=== PATIENT | male | born 1945 | race African-American/Black ===

== ENCOUNTER 2019-07-25 17:26 | Inpatient (IN) | payer OTHER ==
[~2019-07-25] VITALS: Ht 177.8 cm; Wt 67.1 kg
--- NOTE | ~2019-07-25 | P ---
[facility] [place] [address] PROCEDURE REPORT Name: VKII SCHULTZ Room #: 444-P [facility] IN M.R.#: [id number] Admission: 07/25/19 Attend Phys: Bailey Cain MD Discharge: Date of : 47 Report #: [id number] THIS REPORT FOR: //name// CC: India Karynvalente Bailey Loredo MD DATE OF SERVICE: 08/02/2019 BRIEF HISTORY: The patient is a 76-year-old male who was admitted to [facility] and found to have ascites and underwent a large volume paracentesis of 12 liters. Etiology of his chronic liver disease is not entirely clear. CT reveals evidence of a cirrhotic liver. The patient is a poor historian and can provide no information with regards to his liver disease. Upper endoscopy is recommended to survey for esophageal varices. PREOPERATIVE DIAGNOSES: Cirrhosis and end-stage liver disease, on dialysis. POSTOPERATIVE DIAGNOSES: 1. Severe erosive esophagitis. 2. Diffuse gastritis. 3. Retained solids and liquids in the stomach, suggestive of gastroparesis. MEDICATIONS: Deep sedation with propofol per anesthesia. SPECIMEN: Biopsies of gastritis. ESTIMATED BLOOD LOSS: 3 mL. PROCEDURE: EGD with biopsy. FINDINGS: Prior to propofol sedation, procedure of EGD was discussed with the patient as well as potential risks and its complications. He indicates he understands and desires to proceed. DESCRIPTION OF PROCEDURE: The patient was in the supine position, his head and chest was raised about 30 degrees. Subsequently, the Olympus video endoscope was inserted in the cervical esophagus under direct vision without difficulty. Examination of this organ through its entire length revealed intact esophageal mucosa. However, he was noted to have multiple linear erosions in the mid and distal esophagus. These findings were consistent with erosive esophagitis. No strictures or masses were seen. Obvious Bell mucosa was not seen. In addition, esophageal varices were not seen. Scope was advanced in the stomach, was examined on end view as well as retroflexed views. The patient had a large volume of liquid and particulate matter in his stomach. We were able to suction away a significant amount of liquid, but a large amount of stool remained in the [facility] [address] [address] PROCEDURE REPORT Name: VIKI SCHULTZ Room #: 444-P ADM IN M.R.#: [id number] Admission: 07/25/19 Attend Phys: Bailey Cain MD Discharge: Date of : 47 Report #: [id number]. Because of particulate matter, the scope kept clogging and we were no longer able to suction the material through the scope. Due to the large amount of retained material in the stomach, limited views were obtained. There was erythema of the mucosa that could be visualized, but no other abnormalities were seen. However, it is noted this was a very limited exam. There was a fairly large pool in the antrum of the stomach. I could not suction this material away and subsequently could not identify the pylorus. Since a large amount of liquid remained in the stomach, it was felt best to terminate the procedure. The scope was withdrawn. The patient tolerated the procedure well. DISPOSITION: Procedure undertaken for evaluation of portal hypertension and esophageal varices. No varices were seen. However, he does have a significant esophagitis. This likely on the basis of his gastroparesis and retained material in the stomach. We will start him on a PPI. There was an incomplete examination of the stomach. We need to consider repeat endoscopy at a later date. As far as screening for esophageal varices, none were seen today. We will place him on a PPI and we will empirically start him on Reglan at least on a short-term basis. By: [id number] Jaylon Rojo MD /nithya
[2019-07-25 17:28] VITALS: BP 101/54
[2019-07-25] MEDS ORDERED: LASIX 40 MG TAB40 MG PO (17:47)
[2019-07-25] MEDS ORDERED: NORVASC10 MG PO (17:47)
[2019-07-25] MEDS ORDERED: TYLENOL325 MG PO (17:47)
[2019-07-25] MEDS ORDERED: HYDRALAZINE 2525 M1 PO (17:48)
[2019-07-25] MEDS ORDERED: ASA81BEC PO (17:48)
[2019-07-25] MEDS ORDERED: LIPITOR40 MG PO (17:48)
[2019-07-25] MEDS ORDERED: RENVELA800 MG PO ×2 (17:49→17:50)
[2019-07-25] MEDS ORDERED: DULCOLAX STOOL100 M1 PO (17:50)
[2019-07-25] MEDS ORDERED: CARVEDILOL25 MG PO (17:50)
[2019-07-25 18:12] LABS: ABSOLUTE NEUTROPHILS 6.7 thou/uL (1.4-8.2); BASOPHILS 0.7 % (0.0-2.0); EOSINOPHILS 0.7 % (0.0-3.0); HEMATOCRIT 35.2 % (42.0-52.0); HEMOGLOBIN 11.1 gm/dL (14.0-18.0); LYMPHOCYTES 11.5 % (24.0-44.0); MCH 26.6 pg (26.0-34.0); MCHC 31.5 g/dL (28.0-37.0); MCV 84.4 fL (80.0-100.0); MONOCYTES 6.6 % (1.0-8.0); PLATELET COUNT 248 thou/uL (150-400); POLYS 80.5 % (36.0-66.0); RBC 4.17 mil/uL (4.50-6.00); RDW 15.2 % (10.5-14.5); WBC 8.3 thou/uL (4.0-11.0)
[2019-07-25 18:20] LABS: CALCIUM 8.6 mg/dL (8.5-10.1); CREATININE 5.4 mg/dL (0.7-1.3)
[2019-07-25] MEDS ORDERED: MELATIN3 MG PO (18:22)
[2019-07-25 18:33] LABS: ALBUMIN 3.1 g/dL (3.4-5.0); DIRECT BILIRUBIN 0.2 mg/dL (<0.1-0.3); TOTAL BILIRUBIN 0.5 mg/dL (<0.1-1.0)
[2019-07-25 19:57] VITALS: BP 100/59
[2019-07-25 20:38] VITALS: BP 124/76
[2019-07-25] MEDS ORDERED: ALPHAGAN P5 ML EA. EYE (23:18)
[2019-07-25] MEDS ORDERED: DULCOLAX10 MG RECTAL (23:21)
[2019-07-25] MEDS ORDERED: COLACE100 MG PO (23:22)
[2019-07-25] MEDS ORDERED: LUMIGAN2.5 M1 EA. EYE (23:26)
[2019-07-25] MEDS ORDERED: MIDODRINE HCL 55 M1 PO (23:27)
[2019-07-26] VITALS: BP 118/70
[2019-07-26 04:50] VITALS: BP 128/86
--- NOTE | 2019-07-26 05:17 | NUR ---
RECEIVED REPORT FROM ER NURSE. PT ADMITTED AROUND 2017. ADMISSION HX AND ASSESSMENT COMPLETED. PT IS CONFUSED AND A POOR HISTORIAN. DENIED ANY PAIN. O2 SATS LOW ON RA. PLACED ON 3L NC. PT HAS BEEN SLEEPING THROUGHOUT THE NIGHT. RESP EVEN AND UNLABORED. PT MOVES SELF INDEPENDENTLY IN BED. PT HAD LARGE, FORMED BOWEL MOVEMENT UPON ADMISSION. PT'S BROTHER/DPOA CAME TO CHECK ON PT'S STATUS DURING THE NIGHT. VSS. ABDOMEN STILL VERY DISTENDED. FALL PRECAUTIONS IN PLACE. PROGRESSING SLOWLY TOWARD POC GOALS. WILL CONTINUE TO MONTIOR FURTHER.
[2019-07-26 06:22] LABS: HEMATOCRIT 33.4 % (42.0-52.0); HEMOGLOBIN 10.6 gm/dL (14.0-18.0); MCH 26.8 pg (26.0-34.0); MCHC 31.7 g/dL (28.0-37.0); MCV 84.5 fL (80.0-100.0); RBC 3.95 mil/uL (4.50-6.00); RDW 15.2 % (10.5-14.5); WBC 6.9 thou/uL (4.0-11.0)
[2019-07-26 06:44] LABS: ALBUMIN 2.8 g/dL (3.4-5.0); CALCIUM 8.2 mg/dL (8.5-10.1); POTASSIUM 3.3 mmol/L (3.5-5.1); TOTAL BILIRUBIN 0.5 mg/dL (<0.1-1.0); TOTAL PROTEIN 7.2 g/dL (6.4-8.2)
[2019-07-26 06:46] LABS: INR 1.1
[2019-07-26 06:47] LABS: CREATININE 6.5 mg/dL (0.7-1.3)
[2019-07-26 09:36] VITALS: BP 116/57
[2019-07-26 12:37] LABS: % SATURATION 19 % (20-39); IRON 32 ug/dL (65-175); TIBC 166 ug/dL (250-450)
[2019-07-26 13:11] LABS: SOURCE ABDOMINAL; TOTAL VOLUME 20 mL
[2019-07-26 13:12] LABS: CLARITY CLEAR; COLOR YELLOW
[2019-07-26 13:22] LABS: BF NUCLEATED CELLS 131; BF RBC 546
--- NOTE | 2019-07-26 13:54 | NUR ---
PT ADMITTED RELATED TO ABDOMINAL DISTENTION AND NEW DX OF ASCITES. CM REVIEWED CHART AND SPOKE WITH CARE TEAM. CM MET WITH PT AT BEDSIDE THIS DAY. PT IS ALERT TO SELF AND PLACE. PT CONFIRMEND THAT HE HAD BEEN AT [facility]. PT STATED HE HAD BEEN THERE FOR 3 WEEKS. PT INDICATED THAT HE WOULD WANT HIS SON WILLIAN A CONTACT BUT HE DIDN'T HAVE HIS NUMBER. CM TRIED PT'S SON WILLIAN NUMBER LISTED ON [facility] FACE SHEET AND PT'S BROTHER DASH WHO WE HAVE LISTED DPOA WITH NO PAPERWORK ON CHART AND NEITHER ANSWERED. PT INDICATED HE PLANS TO RETURN TO [facility]. CM CALLED JUAN IN ADMISSIONS AT [facility] SHE INDICATED THAT PT HAD ADMITTED TO THE FROM [facility] 5 MONTHS AGO AND THAT PT HD USED ALL HIS SKILLED DAYS AND IS NOW LTC MEDICAID PENDING. SHE INDICATED THAT PT'S BROTHER IS AN OVER THE ROAD QUALITATIVE RESEARCHER AND THAT HE IS IN THE PROCESS OF PERSUEING GUARDIANSHIP. PT DOES DIALYSIS AT [facility]. CLINICAL INFO SENT TO [facility]. CM TO FOLLOW INDICATED WITH DC PLANNING.
[2019-07-26 14:26] LABS: BF NEUTROPHILS 2
[2019-07-26 14:28] LABS: BF MACROPHAGE 64
[2019-07-26 19:22] VITALS: BP 133/71
[2019-07-27 03:49] VITALS: BP 91/50
--- NOTE | 2019-07-27 04:10 | NUR ---
ASSUMED CARE OF PT @1900 PT ASSESSED AT START OF SHIFT. A&0X3 TO PERSON, PLACE AND SITUATION. DINNER TRAY INFORNT AND THIS NURSE ENCOURAGED PT TO EAT PT ATE ABT 95% OF MEAL REQUIRES EXTRA TIME. DENIES PAIN. IV INTACT IN RT A/C AND ABX GIVEN. PARACENTESIS DONE EARLIER TODAY DRAINED ABT 12.5L DRESSING INPLACE. ON 3L OF O2. FISTULA IN LFT UPPER ARM PRESENT AND ASSESSED. GETS HEMODIALYSIS MWF. SCD'S IN PLACE AND PT REPOSITIONS SELF IN BED. FALL PREC INPLACE AND CALL LIGHT WITHIN REACH. HOURLY ROUNDING DONE AND WILL CONT WITH POC TILL EOS. SPOKE WITH BAILEY DOMINGUEZ OVER THE PHONE CALLED TO SEE HOW PT IS DOING INFORMED HER ABT PT WELL BEING.
--- NOTE | 2019-07-27 13:31 | NUR ---
Assess due to RD consult. Pt admit with abdominal ascites, liver cirrhosis and need for parancentesis. Also hx ESRD with dialysis. Ammonia level 53, started on lactulose. From care home, somewhat confused upon questioning but able to answer basic questions. Ate 95% breakfast and nearly all lunch. Presents low nutrition risk as appetite and intake is adequate.
--- NOTE | 2019-07-27 14:20 | NUR ---
[facility] RECEIVED CONFIRMATION AND LEFT MSG WITH JUAN IN ADM .
[2019-07-27 16:09] LABS: BODY FLUID ALBUMIN 3.2 g/dL (Not Estab.); BODY FLUID AMYLASE 54 U/L (()); BODY FLUID GLUCOSE 79 mg/dL (()); BODY FLUID LDH 138 IU/L (())
--- NOTE | 2019-07-27 17:21 | NUR ---
PT A@OX3. IV INTACT IN R AC. PT RECEIVED DIALYSIS TODAY 1 LITER REMOVED. O2@3L PER NC. ABD FIRM AND DISTENDED. DENIES SOB OR PAIN. WILL CONT POC.
[2019-07-27 17:25] VITALS: BP 96/58
[2019-07-27 19:18] VITALS: BP 120/63
[2019-07-27 21:10] LABS: IgG 1409 mg/dL (700-1600)
--- NOTE | 2019-07-28 03:49 | NUR ---
ASSUMED CARE OF PT @1900 PT ASSESSED AT START OF A&OX3 DENIES PAIN. IV INTACT IN RT A/C ABX INFUSING. HADX2 BM AT THIS SHIFT. HAD DIALYSIS EARLIER TODAY. ON 3L OF O2 WILL CONT WITH POC TILL EOS.
[2019-07-28 05:00] VITALS: BP 107/61
[2019-07-28 06:10] LABS: BASOPHILS 0.5 % (0.0-2.0); EOSINOPHILS 2.2 % (0.0-3.0); HEMATOCRIT 31.7 % (42.0-52.0); LYMPHOCYTES 14.1 % (24.0-44.0); MCH 26.8 pg (26.0-34.0); MCHC 31.7 g/dL (28.0-37.0); MCV 84.6 fL (80.0-100.0); MONOCYTES 8.3 % (1.0-8.0); PLATELET COUNT 207 thou/uL (150-400); POLYS 74.9 % (36.0-66.0); RBC 3.75 mil/uL (4.50-6.00); RDW 15.1 % (10.5-14.5); WBC 6.6 thou/uL (4.0-11.0)
[2019-07-28 06:35] LABS: CALCIUM 7.6 mg/dL (8.5-10.1); CREATININE 6.8 mg/dL (0.7-1.3); INR 1.1; PHOSPHORUS 3.1 mg/dL (2.5-4.9); POTASSIUM 3.8 mmol/L (3.5-5.1)
[2019-07-28 09:21] VITALS: BP 106/55
[2019-07-28 09:26] LABS: SOURCE ABDOMINAL
[2019-07-28 10:18] VITALS: BP 106/55
--- NOTE | 2019-07-28 13:07 | PATH ---
[facility] [address] [place] [address] PATHOLOGY RPT PROCEDURE Name: VIKI SCHULTZ Room #: 444-P ADM IN M.R.#: [id number] Admission: 07/25/19 Date of : 47 Discharge: Report #: [id number] Path Case #: [id number] Note [facility] Accession Number: [id number] TESTS RESULT FLAG UNITS REF RANGE LAB Clinician Provided Cytology Information No. of containers..01 Other (Miscellaneous) Source: 01 ABDOMINAL FLUID DIAGNOSIS: 02 ABDOMINAL FLUID NEGATIVE FOR MALIGNANT CELLS. MESOTHELIAL CELLS ARE PRESENT. THIS INTERPRETATION INCLUDES EVALUATION OF A CELL BLOCK. Pathologist ICD10: 02 R18.8 Signed out by: Veronica Edmonds MD, Pathologist NPI- [id number] Performed by: Katina Crews, Staff Development Educator ([facility]) Gross description: 01 6 ML, YELLOW, CLEAR /LCS 09/27/1840 0000 Local FLAG LEGEND: L-Low Normal,H-High Normal,LL-Alert Low,HH-Alert High <-Panic Low,>-Panic High,A-Abnormal,AA-Critical Abnormal Performed at: [address] [place] [address] Bubba Crenshaw MD, [address] [address] Veronica Edmonds MD, Specimen Comment: A courtesy copy of this report has been sent to [phone] Specimen Comment: Report sent to Specimen Comment: A duplicate report has been generated due to demographic updates. Performed at: [address], [place], [place] [id number] MD Bubba Crenshaw MD Phone: [phone]
[2019-07-28 13:11] LABS: CERULOPLASMIN 18.5 mg/dL (16.0-31.0)
[2019-07-28 17:14] VITALS: BP 110/60
[2019-07-28 18:06] LABS: HAV IgM AB (ANTI-HAV IgM) Negative (Negative); HEPATITIS B SURFACE AG Negative (Negative); HEPATITIS C VIRUS AB <0.1 (0.0-0.9)
[2019-07-28 21:15] VITALS: BP 90/55
--- NOTE | 2019-07-29 01:31 | NUR ---
ASSUMED CARE OF PATIENT AT 1900. UP IN CHAIR UNTIL READY FOR BED. UP WITH ASSIST X 2. PLANNED DIALYSIS IN AM. POSSIBLE DC. PROGRESSING TOWARDS POC GOALS.
[2019-07-29 04:55] VITALS: BP 120/67
[2019-07-29 08:00] VITALS: BP 105/51
--- NOTE | 2019-07-29 09:43 | 2DMMODE ---
[facility] [address] [place] [address] 2 D/M-MODE ECHOCARDIOGRAM Name: VIKI SCHULTZ Room #: 444-P ADM IN M.R.#: [id number] Admission: 07/25/19 Attend Phys: Bailey Cain, Discharge: Date of : 47 Report #: [id number] THIS REPORT FOR: //name// APPROVED REPORT Study performed: 07/29/2019 08:51:48 EXAM: Comprehensive 2D, Doppler, and color-flow Echocardiogram Patient Location: Bedside Room #: 444 Status: routine BSA: 1.87 HR: 62 bpm BP: 120/67 mmHg Rhythm: NSR Other Information Study Quality: Excellent Indications Ascites. Hx: ESRD, DM. 2D Dimensions RVDd: 36.28 mm IVSd: 13.00 (7-11mm) LVOT Diam: 21.09 (18-24mm) LVDd: 45.00 mm PWd: 13.00 (7-11mm) Ascending Ao: 35.84 (22-36mm) LVDs: 27.50 (25-40mm) Aortic Root: 34.13 mm Volumes Left Atrial Volume (Systole) Single Plane 4CH: 37.56 mL Single Plane 2CH: 39.62 mL LA ESV Index: 23.00 mL/m2 Aortic Valve AoV Peak Prashant.: 2.07 m/s AO Peak Gr.: 17.07 mmHg LVOT Max P.84 mmHg LVOT Max V: 1.49 m/s EVAN Vmax: 2.51 cm2 Mitral Valve E/A Ratio: 0.7 MV Decel. Time: 361.09 ms MV E Max Prashant.: 0.51 m/s [facility] [address] [place] [address] 2 D/M-MODE ECHOCARDIOGRAM Name: VIKI SCHULTZ Room #: 444-P ADM IN ..#: [id number] Admission: 07/25/19 Attend Phys: Bailey Cain, Discharge: Date of : 47 Report #: [id number] MV A Prashant.: 0.77 m/s MV PHT: 104.72 ms IVRT: 89.97 ms Pulmonary Valve PV Peak Prashant.: 0.83 m/s PV Peak Gr.: 2.73 mmHg Tricuspid Valve TR Peak Prashant.: 2.90 m/s RAP Estimate: 5.00 mmHg TR Peak Gr.: 34.00 mmHg PA Pressure: 39.00 mmHg Left Ventricle The left ventricle is normal size. There is normal LV segmental wall motion. Mild to moderate concentric left ventricular hypertrophy. Left ventricular systolic function is normal. LVEF is 60-65%. Mild diastolic dysfunction is present (impaired relaxation pattern). Right Ventricle The right ventricle is normal size. The right ventricular systolic function is normal. Atria The left atrium size is normal. The right atrium size is normal. Aortic Valve The aortic valve is normal in structure; moderately thickened. Mild aortic regurgitation. There is no aortic valvular stenosis. Mitral Valve The mitral valve is normal in structure. Mild mitral regurgitation. Tricuspid Valve The tricuspid valve is normal in structure. Mild tricuspid regurgitation. Estimated PAP is 40mmHg. Pulmonic Valve The pulmonary valve is normal in structure. Trace pulmonic regurgitation. Great Vessels The aortic root is normal in size. The ascending aorta is normal in size. IVC is normal in size and collapses >50% with [facility] [address] [place] [address] 2 D/M-MODE ECHOCARDIOGRAM Name: VIKI SCHULTZ Room #: 444-P ADM IN M.R.#: [id number] Admission: 07/25/19 Attend Phys: Bailey Cain, Discharge: Date of : 46 Report #: [id number] inspiration. Pericardium There is no pericardial effusion. Left pleural effusion noted. <Conclusion> The left ventricle is normal size. LVEF is 60-65%. The aortic valve is normal in structure; moderately thickened. Mild aortic regurgitation. The mitral valve is normal in structure. Mild mitral regurgitation. The pulmonary valve is normal in structure. Trace pulmonic regurgitation. There is no significant pericardial effusion. Left pleural effusion noted. <ELECTRONICALLY SIGNED> By: Everardo Phillips MD 07/29/19 0943 0943 2 Everardo Phillips MD /INF
[2019-07-29 12:11] LABS: ANA INTERPRETATION Negative (Negative)
[2019-07-29 14:07] LABS: SMOOTH MUSCLE ANTIBODY 33 Units (0-19)
[2019-07-29 15:08] LABS: MITOCHONDRIAL ANTIBODY <20.0 Units (0.0-20.0)
--- NOTE | 2019-07-29 15:48 | NUR ---
TOOK OVER CARE OF PT APPROX. 0700. A&Ox4 AT MORNING ASSESSMENT. DYALISIS TODAY. DRY WEIGHT OBTAINED WITH A 30LB WEIGHT LOSS SINCE ADMISSION. PT. IS CALM AND SLEEPY. NO INSULINE NEEDED TODAY DU TO GOOD GLUCOSE RESULTS. OXYGEN MAINTAINED AT 2.5L AND IS LEAVING NASAL CANULA ON.
[2019-07-29 21:00] VITALS: BP 108/59
[2019-07-30 04:00] VITALS: BP 99/52
--- NOTE | 2019-07-30 04:23 | NUR ---
PATIENT ALERT AND ORIENTED X3. PATIENT HAS BEEN NPO SINCE 2358 FOR EGD TODAY. NO C/O PAIN NOTED. DENIES PAIN. SLEPT IN CHAIR FOR MOST OF THE NIGHT. TRANSFERRED TO THE BED WITH TWO ASSIST. LARGE BM. 02NC IN PLACE WITH NO SOA NOTED. RESTING QUIETLY.
[2019-07-30 07:56] VITALS: BP 85/51
[2019-07-30 07:59] VITALS: BP 84/51
--- NOTE | 2019-07-30 19:32 | NUR ---
ASSUMED CARE OF PATIENT AT 0715, PATIENT ALERT WITH PERIODS OF CONFUSION. PATIENT IS NPO FOR EGD TODAY. B/P LOW 85/51 AND BLOOD SUGAR LOW 64, THIS RN NOTIFIED DR ARTHUR, RECEIVED ORDER FOR NS 500CC BOLUS AT 250CC/HR. RECEIVED ORDER FOR DEXTROSE 50% INJECTION. ORDERS IN BUT PHARMACY DODN'T SEND DEXTROSE UNTIL 1200, CALLED X 2 FOR THIS MEDICATION. SURGERY CALLED AND CANCELLED PROCEDURE, DUE TO LOW B/P AND LOW BLOOD SUGAR, ALSO NO LABS DONE THIS AM. PATIENT GIVEN PUDDING AND APPLE JUICE, REORDERED RENAL DIET. BLOOD SUGAR CHECKED AT NOON 84, ASSISTED PATIENT WITH LUNCH TRAY SET UP. RIGHT AC IV IN PLACE.
[2019-07-30 20:40] VITALS: BP 93/59
[2019-07-31 00:13] VITALS: BP 129/76
[2019-07-31 03:45] LABS: MCH 26.8 pg (26.0-34.0); MCHC 31.5 g/dL (28.0-37.0); MCV 85.1 fL (80.0-100.0); RBC 4.12 mil/uL (4.50-6.00); WBC 7.7 thou/uL (4.0-11.0)
[2019-07-31 04:03] LABS: ALBUMIN 2.1 g/dL (3.4-5.0); CALCIUM 7.9 mg/dL (8.5-10.1); PHOSPHORUS 3.5 mg/dL (2.5-4.9); POTASSIUM 4.4 mmol/L (3.5-5.1); TOTAL BILIRUBIN 0.4 mg/dL (<0.1-1.0); TOTAL PROTEIN 6.1 g/dL (6.4-8.2)
[2019-07-31 04:04] LABS: CREATININE 8.3 mg/dL (0.7-1.3)
--- NOTE | 2019-07-31 04:17 | NUR ---
PATIENT ALERT AND ORIENTED X2-[address] AT 2.5L. RESTLESS AT BEGINNING OF SHIFT WITH ATTEMPTS TO GET OOB. REORIENTED AND MONITORED. INCONTINENT OF BM X2 DURING THE NIGHT. BS MONITORED PER ORDER. ABDOMEN REMAINS DISTENDED AND SOFT. NO SOA NOTED. RESTING QUIETLY AT TIME OF NOTE. DENIES PAIN.
[2019-07-31 05:30] VITALS: BP 105/61
[2019-07-31 08:00] VITALS: BP 110/64
[2019-07-31 17:18] VITALS: BP 153/90
[2019-07-31 19:15] VITALS: BP 153/64
--- NOTE | 2019-08-01 03:41 | NUR ---
PATIENT ALERT AND ORIENTED X2. LESS RESTLESS DURING THE NIGHT. COOPERATIVE WITH CARE. PATIENT WILL HAVE DIALYSIS TODAY. BS MONITORED PER ORDER. NO STOOLS AT TIME OF NOTE. DRESSING TO DIALYSIS FISTULA DRY AND INTACT WITH BRUITT AND THRILL. RESTING QUIETLY. WILL MONITOR.
--- NOTE | 2019-08-01 04:42 | NUR ---
PATIENT GIVEN FULL BATH AND LOTIONED. CONTINUES TO DENY PAIN. RESTING QUIETLY WITH 02NC 2.5L. WILL MONITOR.
[2019-08-01 04:45] LABS: HEMATOCRIT 34.2 % (42.0-52.0); HEMOGLOBIN 10.9 gm/dL (14.0-18.0); MCH 26.7 pg (26.0-34.0); MCHC 31.7 g/dL (28.0-37.0); MCV 84.3 fL (80.0-100.0); RBC 4.06 mil/uL (4.50-6.00); RDW 15.5 % (10.5-14.5); WBC 8.8 thou/uL (4.0-11.0)
[2019-08-01 04:53] LABS: CALCIUM 8.2 mg/dL (8.5-10.1); MAGNESIUM 2.3 mg/dL (1.8-2.4); PHOSPHORUS 3.7 mg/dL (2.5-4.9); POTASSIUM 4.3 mmol/L (3.5-5.1)
[2019-08-01 04:57] LABS: CREATININE 9.6 mg/dL (0.7-1.3)
[2019-08-01 07:28] VITALS: BP 120/67
--- NOTE | 2019-08-01 16:31 | NUR ---
ORIENTED TO SELF. CALM, COOPERATIVE. SOME CONFUSED SPEECH. DIALYSIS TODAY, EGD TOMORROW. HE JUST WANTS HOT LIQUIDS AND HOT FOOD. REFUSES BG AND VS AT TIMES. WILL CONTINUE TO MONITOR CLOSELY.
--- NOTE | 2019-08-01 16:48 | NUR ---
CASE DISCUSSED WITH ATTENDING DR AND MEDCAL WORK-UP IN PROCESS. PLAN IS TO RETURN TO [facility].
[2019-08-01 19:21] VITALS: BP 120/68
--- NOTE | 2019-08-02 04:13 | NUR ---
ASSUMED CARE OF PT @1900 PT ASSESSED AT START OF SHIFT A&0 TO SELF AND SITUATION WITH CONFUSION. DENIES PAIN. PT NPO AT MIDNIGHT FOR EGD TOMORROW. HAD DIALYSIS EARLIER TODAY. PT HAD 2BM'S THIS SHIFT. TRIES TO GET OFF FROM BED FALL PREC IN PLACE AND FREQ ROUNDINGS DONE. FAMILY CALLED @MIDNIGHT TO ASK OF PT WELL BEING STATED THEY WILL BE BACK IN THE AM. WILL CONT WITH POC TILL EOS.
[2019-08-02 04:24] VITALS: BP 89/51
[2019-08-02 05:30] VITALS: BP 99/63
[2019-08-02 07:50] VITALS: BP 79/45
--- NOTE | 2019-08-02 13:51 | NUR ---
Followup: new dx cirrhosis, ascites and need for paracentesis with 12 L removed. Hx ESRD/dialysis. EGD today-gastroparesis, and varices noted. On pantoprazole and starting reglan. BG well controlled. Intake has been fair to good 65-80% most meals. Ammonia level improved to 19. Wt is down 10 lb, however difficult to assess to due to fluid status. Will offer ensure pudding for additional protein source. Physician has identified protein calorie malnutrition: RD will defer. Low nutrition risk at this time since still appears to be eating fairly well.
[2019-08-02 15:22] VITALS: BP 89/57; BP 98/66
[2019-08-02 16:00] VITALS: BP 86/50
--- NOTE | 2019-08-02 18:37 | NUR ---
RECEIVED PT'S CARE AROUND 0710; PT. ON BED; RESTING WITH EYES CLOSED; COVER HEAD WITH BLANKETS; ANSWER BACK TO NAME; NPO; DURING ASSESMENT NO C/O PAIN; VASOPRESSORS GIVEN; GONE TO PROCEDURE AROUND 1100; WHEN BACK TO FLOOR; NO C/O PAIN; BS ON THE 60s AROUND LUNCH TIME; JUICE GIVEN; 100% MEAL EATEN; BP BETWEEN 80-90s; NO C/O HEADACHE OR SOB; ABLE TO STAND UP TO CHAIR WITH PT; HAD BM X2 THROUGH THE DAY; PER GI; NPO AFTER MIDNIGHT DUE TO PROCEDURE ON 08/03/19; ASPIRIN ON HOLD; DIALYSIS NOTIFIED ABOUT PROCEDURE; ASSESSMENT CHARGED; FOLLOWING POC; MONITORING; WILL PASS ON REPORT;
[2019-08-03 00:01] VITALS: BP 112/62
--- NOTE | 2019-08-03 04:34 | NUR ---
Assumed pt care at 1900. Pt's alert to self and place only,able to make needs known at times but doesn't always call for assistance and attempts to get OOB by himself. Fall precautions in place and frequent monitoring done. Pt having small loose stools. Denies pain on assessment. Pt has been NPO since midnight for a possible liver biopsy. Resting quietly at this time no distress noted,will continue to monitor pt.
[2019-08-03 05:46] LABS: INR 1.1; PROTIME 11.4 Seconds (9.3-11.4)
[2019-08-03 09:00] VITALS: BP 95/51
[2019-08-03 15:40] VITALS: BP 147/78
--- NOTE | 2019-08-03 16:55 | NUR ---
pt is A&OX3, but pt is forgetful , pt 's vs are stable, pt is tolerative dialysis today, removed 1700ml fliud, pt denies pain and sob at this time.
--- NOTE | 2019-08-03 17:00 | NUR ---
pt will be NPO after MN FOR liver bx tomorrow in AM, PT had EGD done at 08/02/19, pt is tolerative DM diet at lunch time.
--- NOTE | 2019-08-03 17:06 | PATH ---
[facility] [address] [place] [address] PATHOLOGY RPT PROCEDURE Name: MIR SCHULTZ Room #: 444-P ADM IN M.R.#: [id number] Admission: 07/25/19 Date of : 47 Discharge: Report #: [id number] Path Case #: [id number] L[facility] Accession Number: [id number] . 01 Material submitted: . stomach - BIOPSY OF GASTRITIS TO R/O H. PYLORI . 01 Clinical history: . Chronic liver disease, rule out varices, esophagitis, gastritis, gastroparesis. . 02 Diagnosis: Gastric mucosa, gastritis rule out H. pylori, endoscopic biopsy: - Mild chronic gastritis. - Negative for intestinal metaplasia or atrophy. - Negative for Helicobacter pylori (properly controlled immunohistochemical stain performed). (IUV:dangelo; 08/03/2019) ZAINA 08/03/2019 1336 Local . 02 Electronically signed: . Veronica Edmonds MD, Pathologist NPI- [id number] . 01 Gross description: . Received in formalin labeled "Mir Schultz, BX to gastritis to rule out H. pylori" is a 0.5 x 0.3 x 0.1 cm aggregate of vazquez-brown mucosa fragments. The specimen is submitted in A1. ([facility]; 08/02/2019) [facility] 08/02/2019 1809 Local . 02 Pathologist provided ICD-10: K29.50 . 02 CPT . 548168, [id number] Specimen Comment: A courtesy copy of this report has been sent to [phone] Specimen Comment: [phone], Specimen Comment: Report sent to ,DR DIAZ / DR THOMAS Performed at: [address], [place] [id number] MD Bubba Crenshaw MD Phone: [phone] Performed at: [address] [id number] MD Veronica Edmonds MD Phone: [phone]
[2019-08-03 19:46] VITALS: BP 111/86
--- NOTE | 2019-08-04 04:59 | NUR ---
Assumed pt care at 1900. Pt is A/OX2,able to make needs known. Denies pain on assessment. Up with asssist of 1 RW/GB to BS,had a medium soft BM @HS,anuric. LUE Fistula with bruit and thrill;was dialyzed yesterday. Pt has been NPO from midnight for Liver Biopsy. Brother visited at HS. VSS.Fall precautions in place,will continue to monitor pt.
--- NOTE | 2019-08-04 07:41 | HC ---
[facility] [place] [place] [address] CONSULTATION Name: VIKI SCHULTZ Room #: 444-P ADM IN M.R.#: [id number] Admission: 07/25/19 Attend Phys: Bailey Cain MD Discharge: Date of : 47 Report #: [id number] THIS REPORT FOR: //name// CC: Ashwin Brewerfanny DATE OF SERVICE: 07/26/2019 REASON FOR CONSULTATION: End-stage renal disease. REASON FOR PRESENTATION: Brought from his dialysis unit because of increased abdominal distention. HISTORY OF PRESENT ILLNESS: This is a 74-year-old who is maintained on hemodialysis for unclear reasons to me. He does have some mental deficit and is not able to provide me with the details of his medical history. Apparently, he has been dialyzing utilizing a left-sided fistula. He is on dialysis every Thursday, Thursday and Thursday. He was brought from his dialysis unit because of significant abdominal distention and inability to remove enough fluid during the dialysis. The patient was found to have very significant abdominal ascites. I am not really sure if this had been a recurrent issue or not. This is the first time for the patient in our facility and it is not clear to me whether he knows about his end-stage liver disease issues or not. He reported to abdominal pain and constipation in the last few days. On presentation to the Emergency Room, the patient was found to have significant ascites with all criteria of liver cirrhosis. He was admitted for further evaluation and management. I am being consulted to manage his end-stage renal disease issues. PAST MEDICAL HISTORY: 1. End-stage renal disease. 2. Hypertension. 3. Debility. 4. Hyperparathyroidism. 5. Anemia of chronic disease. 6. Left AV fistula. 7. Liver cirrhosis, unsure about the etiology and the duration of the illness. MEDICATIONS: Currently, the patient is maintained on the followin. Midodrine. 2. Atorvastatin. 3. Hydralazine. 4. Carvedilol. 5. Furosemide. SOCIAL HISTORY: He resides in a nursing facility. [address] [place] [address] CONSULTATION Name: VIKI SCHULTZ Room #: 444-P ADM IN M.R.#: [id number] Admission: 07/25/19 Attend Phys: Bailey Cain MD Discharge: Date of : 47 Report #: [id number] FAMILY HISTORY: Unobtainable given the patient's current mentation. REVIEW OF SYSTEMS: As much as I could get from the patient with his current mental status. GENERAL: No fever or chills. CARDIOVASCULAR: No chest pain or palpitation. PULMONARY: No cough or hemoptysis. GASTROINTESTINAL: As per the history of present illness. GENITOURINARY: No frequency, no urgency. PHYSICAL EXAMINATION: VITAL SIGNS: Temperature 36.3, blood pressure 128/86. HEAD AND NECK: Emaciated with temporal muscle wasting. CHEST: Decreased air entry bilaterally. CARDIOVASCULAR: Systolic murmur present. ABDOMEN: Massive amount of ascites. LOWER EXTREMITIES: No edema. LABORATORY DATA: Reviewed. Sodium 141, potassium 3.3, BUN is 29, creatinine 6.5, chloride is 95, carbon dioxide is 38. Hemoglobin is 10.6. CT abdomen reviewed, significant amount of ascites. ASSESSMENT, IMPRESSION AND PLAN: 1. End-stage renal disease. 2. Ascites. 3. We will arrange for the patient to have his usual hemodialysis every Thursday, Thursday and Thursday. For unclear reasons to me, the patient is on blood pressure medication and midodrine, which is kind of an unusual combination. I will discontinue his blood pressure medication. 4. Keep on midodrine. 5. Ascites and liver cirrhosis workup per the primary team. <ELECTRONICALLY SIGNED> By: Pippa Moore MD 08/04/19 0741 0834 38 Pippa Moore MD /nt
[2019-08-04 07:47] VITALS: BP 114/49
--- NOTE | 2019-08-04 14:23 | NUR ---
Pt dcing back to ltc at [facility] today. They have arranged for a w/c van transport at 5pm. Care team updated. Will fax final dc orders to [facility] when ready. [facility] [place] arranged for his w/c van to dialysis in the am at [facility]. Flow sheets and physician progress notes faxed to [facility] for resumption of outpt tx tomorrow. Chart copy in progress. Nursing to call report.
[2019-08-04] MEDS ORDERED: PROTONIX 20 MG20 M1 PO (16:41)
[2019-08-04] MEDS ORDERED: HUMALOG100 UNIT/1 SUBQ (16:41)
[2019-08-04] MEDS ORDERED: LACTULOSE20 GM/30 M PO (16:41)
[2019-08-04] MEDS ORDERED: MIDODRINE HCL 55 M1 PO (16:41)
[2019-08-04] MEDS ORDERED: REGLAN 5 MG TAB5 MG PO (16:47)
--- NOTE | 2019-08-04 18:52 | NUR ---
ASSUMED CARE OF PATIENT AT 0715, PATIENT NPO THIS AM FOR LIVER BIOPSY. RECEIVED CALL FROM IR, PROCEDURE CANCELLLED DUE TO PATIENT HAVING ASPIRIN ON THURSDAY. THIS RN SPOKE TO UMESH/SHAYAN AND SHE STATES PATIENT WILL DISCHARGE BACK TO FACILITY DUE TO LIVER BIOPSY CANCELLED. PATIENT RESTARTED DIET LATE BREAKFAST TRAY. BLOOD SUGAR MONITORING ORDERED, NO INSULIN GIVEN DUE TO BLOOD SUGARS WNL. PATIENT HAD RIGHT UPPERARM IV IN PLACE, REMOVED PRIOR TO DISCHARGE. DISCHARGE ORDER IN BY DR ARTHUR. LEFT ARM FISTULA IN PLACE FOR DIALYSIS MWF, 1.7 OFF YESTERDAY. ABDOMEN IMPROVED. NO C/O PAIN THIS SHIFT. PATIENT IS A SETUP FOR MEALS. ALL PERSONAL BELONGINGS SENT WITH THE PATIENT, REPORT GIVEN TO TOMI/RN AT [facility].
== END 2019-08-04 20:11 | DRG 432 ==
LOC: ER 17:26 → 4S 19:30 → EROBS 19:30 → 4S 20:19
PROVIDERS: Internal Medicine; Internal Medicine Nephrology; Nurse Practitioner; Nurse Practitioner Acute Care; ADMIT Internal Medicine
PROC: 0W9G3ZZ Drainage of Peritoneal Cavity, Percutaneous Approach (ICD-10-PCS; principal; 2019-07-26)
PROC: 5A1D70Z Performance of Urinary Filtration, Intermittent, Less than 6 Hours Per Day (ICD-10-PCS; 2019-07-29)
PROC: 0DB68ZX Excision of Stomach, Via Natural or Artificial Opening Endoscopic, Diagnostic (ICD-10-PCS; 2019-08-02)
DX: K74.60 Unspecified cirrhosis of liver (principal); N18.6 End stage renal disease; E43 Unspecified severe protein-calorie malnutrition; G92 Toxic encephalopathy; K22.10 Ulcer of esophagus without bleeding; K76.6 Portal hypertension; R18.8 Other ascites; I12.0 Hypertensive chronic kidney disease with stage 5 chronic kidney disease or end stage renal disease; E87.6 Hypokalemia; E11.22 Type 2 diabetes mellitus with diabetic chronic kidney disease; K29.70 Gastritis, unspecified, without bleeding; E78.5 Hyperlipidemia, unspecified; D63.8 Anemia in other chronic diseases classified elsewhere; K72.90 Hepatic failure, unspecified without coma; I95.89 Other hypotension; F03.90 Unspecified dementia, unspecified severity, without behavioral disturbance, psychotic disturbance, mood disturbance, and anxiety; E11.649 Type 2 diabetes mellitus with hypoglycemia without coma; E11.43 Type 2 diabetes mellitus with diabetic autonomic (poly)neuropathy; K31.84 Gastroparesis; Z79.899 Other long term (current) drug therapy
CPT/HCPCS: 10100; 10195; 32100; 62110; 62900; 70005

== ENCOUNTER → 2019-08-15 | Outpatient (CLI) | payer OTHER ==
[~2019-08-15] VITALS: Ht 177.8 cm; Wt 70.9 kg
[~2019-08-15] MED LIST: ALPHAGAN P5 ML EA. EYE; ASA81BEC PO; CARVEDILOL25 MG PO; COLACE100 MG PO; DULCOLAX STOOL100 M1 PO; DULCOLAX10 MG RECTAL; HUMALOG100 UNIT/1 SUBQ; HYDRALAZINE 2525 M1 PO; LACTULOSE20 GM/30 M PO; LASIX 40 MG TAB40 MG PO; LIPITOR40 MG PO; LUMIGAN2.5 M1 EA. EYE; MELATIN3 MG PO; MIDODRINE HCL 55 M1 PO; NORVASC10 MG PO; PROTONIX 20 MG20 M1 PO; REGLAN 5 MG TAB5 MG PO; RENVELA800 MG PO; TYLENOL325 MG PO
[2019-08-15 10:05] VITALS: BP 120/67
[2019-08-15 10:36] LABS: INR 1.1; PROTIME 11.3 Seconds (9.3-11.4)
[2019-08-15 10:41] LABS: ALBUMIN 2.4 g/dL (3.4-5.0); DIRECT BILIRUBIN 0.2 mg/dL (<0.1-0.3); TOTAL BILIRUBIN 0.3 mg/dL (<0.1-1.0)
--- NOTE | 2019-08-15 12:08 | NUR ---
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 CONTINUES TO ASK ABOUT HIS LIVER BX AND EXPLANATION OF WHAT IT INVOLVES. EXPLAINED BRIEFLY, HAS BEEN TOLD SEVERAL TIMES BY OTHER NURSES AND DR. PATTEN. I INSTRUCTED DR PATTEN WILL AGAIN REMIND HIM OF PROCEDURES WHEN BACK IN IR. PT VERBALIZED UNDERSTANDING.
[2019-08-15 14:32] VITALS: BP 127/70
[2019-08-15 14:45] VITALS: BP 127/50
[2019-08-15 15:10] VITALS: BP 127/70
== END | disposition home or self-care (01) ==
LOC: SPEC 09:38
PROVIDERS: Radiology Vascular & Interventional Radiology
DX: K76.89 Other specified diseases of liver (principal); R18.8 Other ascites; K74.60 Unspecified cirrhosis of liver; I12.9 Hypertensive chronic kidney disease with stage 1 through stage 4 chronic kidney disease, or unspecified chronic kidney disease; E11.22 Type 2 diabetes mellitus with diabetic chronic kidney disease; N18.6 End stage renal disease; D63.1 Anemia in chronic kidney disease; E78.5 Hyperlipidemia, unspecified; Z98.890 Other specified postprocedural states; Z99.2 Dependence on renal dialysis; Z79.4 Long term (current) use of insulin; Z79.82 Long term (current) use of aspirin; Z79.899 Other long term (current) drug therapy

== ENCOUNTER 2020-02-29 13:57 | Inpatient (IN) | payer OTHER | END 2020-03-05 16:43 | DRG 480 | LOC: ER 13:57 → EROBS 16:22 → 4S 23:47 | PROVIDERS: ADMIT Surgery | PROC: 5A1D70Z Performance of Urinary Filtration, Intermittent, Less than 6 Hours Per Day (ICD-10-PCS; principal; 2020-02-29) | PROC: 0QS634Z Reposition Right Upper Femur with Internal Fixation Device, Percutaneous Approach (ICD-10-PCS; principal; 2020-02-29) | DX: S72.001A Fracture of unspecified part of neck of right femur, initial encounter for closed fracture (principal); N18.6 End stage renal disease; I12.0 Hypertensive chronic kidney disease with stage 5 chronic kidney disease or end stage renal disease; W06.XXXA Fall from bed, initial encounter; D63.8 Anemia in other chronic diseases classified elsewhere; E78.5 Hyperlipidemia, unspecified; E11.22 Type 2 diabetes mellitus with diabetic chronic kidney disease; E11.43 Type 2 diabetes mellitus with diabetic autonomic (poly)neuropathy; K31.84 Gastroparesis; K74.60 Unspecified cirrhosis of liver; I69.911 Memory deficit following unspecified cerebrovascular disease; K59.00 Constipation, unspecified; Z20.828 Contact with and (suspected) exposure to other viral communicable diseases; Z82.49 Family history of ischemic heart disease and other diseases of the circulatory system; Z79.82 Long term (current) use of aspirin; Z79.4 Long term (current) use of insulin; Y93.89 Activity, other specified; Y92.013 Bedroom of single-family (private) house as the place of occurrence of the external cause; Y99.8 Other external cause status; Z99.2 Dependence on renal dialysis; Z79.899 Other long term (current) drug therapy ==

== ENCOUNTER 2020-03-28 17:57 | Inpatient (IN) | payer OTHER ==
[~2020-03-28] VITALS: Ht 175.3 cm; Wt 69.1 kg
[~2020-03-28 17:57] MED LIST changes: +ALPHAGAN P5 ML OPHTHALMIC; +COSOPT OCUMETER10 M1 OPHTHALMIC; +GENTEAL TEARS 015 M1 OPHTHALMIC; +HYDROCODON-ACE1 EAC7 PO; +MIRALAX17 GM PO; +PROTONIX 20 MG20 MG PO
[2020-03-28 17:58] VITALS: BP 138/66
[2020-03-28 18:40] LABS: ANION GAP 5 mmol/L (7-16); BUN 23 mg/dL (7-18); CALCIUM 8.3 mg/dL (8.5-10.1); CHLORIDE 97 mmol/L (98-107); CO2 39 mmol/L (21-32); CREATININE 6.8 mg/dL (0.7-1.3); GLUCOSE 125 mg/dL (74-106); POTASSIUM 3.8 mmol/L (3.5-5.1); SODIUM 141 mmol/L (136-145)
[2020-03-28 18:50] LABS: ALBUMIN 3.6 g/dL (3.4-5.0); SGOT 30 U/L (15-37); SGPT 22 U/L (30-65); TOTAL BILIRUBIN 0.4 mg/dL (0.2-1.0); TOTAL PROTEIN 8.4 g/dL (6.4-8.2); TROPONIN-I <0.06 ng/mL (<0.06)
[2020-03-28 19:20] LABS: HEMATOCRIT 30.8 % (42.0-52.0); MCH 28.8 pg (26.0-34.0); MCHC 32.4 g/dL (28.0-37.0); MCV 88.7 fL (80.0-100.0); PLATELET COUNT 193 thou/uL (150-400); RBC 3.47 mil/uL (4.50-6.00); RDW 16.6 % (10.5-14.5); WBC 5.5 thou/uL (4.0-11.0)
[2020-03-28 20:19] LABS: ABSOLUTE NEUTROPHILS 4.3 thou/uL (1.4-8.2); PLATELET ESTIMATE NORMAL
[2020-03-28 21:31] VITALS: BP 144/70
[2020-03-28 21:40] LABS: URINE BILIRUBIN NEGATIVE (Negative); URINE BLOOD 2+ (Negative); URINE CLARITY CLEAR; URINE COLOR YELLOW; URINE GLUCOSE-RANDOM* NEGATIVE (Negative); URINE KETONES NEGATIVE (Negative); URINE LEUKOCYTES-REFLEX NEGATIVE (Negative); URINE NITRITE-REFLEX NEGATIVE (Negative); URINE PROTEIN (DIPSTICK) 2+ (Negative); URINE SPECIFIC GRAVITY 1.015 (1.005-1.035); URINE UROBILINOGEN 0.2 E.U./dl (0.2-1.0)
[2020-03-28 21:50] LABS: AMP/METHAMP Negative (Negative); BARBITURATES Negative (Negative); BENZODIAZEPINES Negative (Negative); COCAINE Negative (Negative); METHADONE Negative (Negative); OPIATES Negative (Negative); PCP Negative (Negative)
[2020-03-28 21:55] LABS: BACTERIA-REFLEX 1-9 Few /HPF (None Seen); CRYSTALS None Seen /LPF (None Seen); HYALINE CASTS 0-3 Few /LPF (None Seen); MUCUS 0-3 Light strn/LPF (None Seen); SQUAMOUS 4-10 Moderate /LPF (0-3); URINE RBC 3-10 Few /HPF (0-2); URINE WBC-REFLEX 0-5 Rare /HPF (0-5)
[2020-03-28] MEDS ORDERED: COLACE100 MG PO (22:01)
[2020-03-28] MEDS ORDERED: ROSUVASTATIN CA20 MG PO (22:03)
[2020-03-28] MEDS ORDERED: EPIPEN0.3 MG/0.1 IM (22:05)
[2020-03-28] MEDS ORDERED: NITROSTAT0.4 M1 PO (22:06)
[2020-03-28 22:59] VITALS: BP 143/71
[2020-03-29 01:47] LABS: HEMATOCRIT 30.8 % (42.0-52.0); HEMOGLOBIN 9.9 gm/dL (14.0-18.0); MCH 28.4 pg (26.0-34.0); MCHC 32.2 g/dL (28.0-37.0); MCV 88.4 fL (80.0-100.0); RBC 3.49 mil/uL (4.50-6.00); RDW 16.7 % (10.5-14.5); WBC 4.4 thou/uL (4.0-11.0)
[2020-03-29 01:50] LABS: CALCIUM 7.5 mg/dL (8.5-10.1); CREATININE 7.5 mg/dL (0.7-1.3); POTASSIUM 3.9 mmol/L (3.5-5.1)
[2020-03-29 05:07] VITALS: BP 143/119
[2020-03-29 08:12] VITALS: BP 137/78
--- NOTE | 2020-03-29 08:57 | EKG ---
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
[2020-03-29 17:20] VITALS: BP 167/90
[2020-03-29 20:24] VITALS: BP 183/99
[2020-03-30 05:56] VITALS: BP 163/83
[2020-03-30 19:36] VITALS: BP 150/77
[2020-03-31 05:30] VITALS: BP 143/70
[2020-03-31 07:53] VITALS: BP 131/75
[2020-03-31 17:03] VITALS: BP 161/91
[2020-04-01 04:03] VITALS: BP 161/88
[2020-04-01 07:46] VITALS: BP 140/89
[2020-04-01 19:29] VITALS: BP 173/95
[2020-04-02 03:59] VITALS: BP 146/82
[2020-04-02 09:10] VITALS: BP 161/85
[2020-04-02 20:15] VITALS: BP 132/72
[2020-04-03 07:22] VITALS: BP 127/81
[2020-04-04 04:59] VITALS: BP 156/93
[2020-04-04 08:23] VITALS: BP 146/64
[2020-04-04 19:15] VITALS: BP 112/64
[2020-04-05 19:07] VITALS: BP 104/69
--- NOTE | 2020-04-06 07:27 | HC ---
[facility] [place] [address] CONSULTATION Name: VIKI SCHULTZ Room #: 359-P ADM IN M.R.#: [id number] Admission: 03/28/20 Attend Phys: Constantino Nazario MD Discharge: Date of : 47 Report #: [id number] THIS REPORT FOR: cc: KINA - Fernanda family physician/PCP KINA - Fernanda family physician/PCP Pippa Moore MD ~ CC: [facility] physician/PCP Constantino Nazario REASON FOR CONSULTATION: End-stage renal disease. REASON FOR PRESENTATION: Mental status changes. HISTORY OF PRESENT ILLNESS: Obtained from the medical chart. A 75-year-old who is well known to me from previous admissions. Apparently, the patient was sent from his nursing facility because of acute mental status changes. He is in end-stage renal disease, maintained on hemodialysis every Thursday, Thursday and Thursday. He was hypoxemic on his presentation with an O2 sat of 85 on room air. Details are not available and scarce due to the patient's acute mental status changes. However, I have known this patient for a long time since he is a repeat admission in our facility. PAST MEDICAL HISTORY: 1. Hypertension. 2. End-stage renal disease, maintained on hemodialysis. 3. Anemia. 4. Hyperlipidemia. 5. Hyperparathyroidism. MEDICATIONS: 1. Lipitor. 2. Aspirin. 3. Pantoprazole. 4. Hydrocodone. 5. Midodrine. REVIEW OF SYSTEMS: Unobtainable given the patient's current mental status. SOCIAL HISTORY: Resides in a nursing facility. Other parts are not available. FAMILY HISTORY: Unobtainable given the patient's mental status. ALLERGIES: Listed allergies none. PHYSICAL EXAMINATION: GENERAL: Somewhat confused. VITAL SIGNS: Blood pressure is 163/83, temperature is 37.2, pulse rate is 63, [facility] [address] [place] [address] CONSULTATION Name: VIKI SCHULTZ Room #: 359-P ADM IN M.R.#: [id number] Admission: 03/28/20 Attend Phys: Constantino Nazario MD Discharge: Date of : 47 Report #: [id number] respiratory rate is 18. HEAD AND NECK: No jugular venous distention. CHEST: No crackles. CARDIOVASCULAR: No rub. ABDOMEN: Soft. EXTREMITIES: Lower extremities, no edema. LABORATORY VALUES: Revealed a white blood cell count of 4.4. Sodium was 141, potassium was 3.9, BUN was 28, creatinine was 7.5. COVID-19 result came back to be positive. ASSESSMENT AND IMPRESSION: 1. End-stage renal disease. 2. COVID-19 positive x 1. 3. Mental status changes. PLAN: 1. Discontinue midodrine given his blood pressure reading. 2. Dialysis with aggressive ultrafiltration. 3. ID is currently managing his COVID-19 results. 4. Resume his outpatient medications related to his dialysis. <ELECTRONICALLY SIGNED> By: Pippa Moore MD 04/06/20 0727 [id number] Pippa Moore, /nt
[2020-04-06 09:24] VITALS: BP 150/97
[2020-04-06 15:03] VITALS: BP 117/74
[2020-04-06 19:17] VITALS: BP 113/63
[2020-04-07 05:20] VITALS: BP 112/64
[2020-04-07 08:48] VITALS: BP 117/73
[2020-04-07 17:03] VITALS: BP 136/71
[2020-04-07 20:06] VITALS: BP 110/65
[2020-04-08 04:40] VITALS: BP 107/61
[2020-04-08 08:32] VITALS: BP 121/69
[2020-04-08 17:22] VITALS: BP 143/78
[2020-04-08 19:40] VITALS: BP 178/88
[2020-04-09 04:25] VITALS: BP 144/84
[2020-04-09 08:30] VITALS: BP 154/85
[2020-04-09 09:00] VITALS: BP 132/54
[2020-04-09 13:11] VITALS: BP 140/81
[2020-04-09 15:04] LABS: HEMATOCRIT 29.8 % (42.0-52.0); HEMOGLOBIN 9.6 gm/dL (14.0-18.0); MCH 27.9 pg (26.0-34.0); MCHC 32.4 g/dL (28.0-37.0); MCV 86.2 fL (80.0-100.0); RBC 3.45 mil/uL (4.50-6.00); RDW 16.1 % (10.5-14.5); WBC 6.2 thou/uL (4.0-11.0)
[2020-04-09 15:11] LABS: CALCIUM 7.6 mg/dL (8.5-10.1); CREATININE 13.2 mg/dL (0.7-1.3); POTASSIUM 5.5 mmol/L (3.5-5.1)
[2020-04-09 19:52] VITALS: BP 132/54
[2020-04-09 21:26] VITALS: BP 136/78
[2020-04-10 03:25] VITALS: BP 142/79
[2020-04-10 09:02] VITALS: BP 126/67
[2020-04-10 16:19] VITALS: BP 116/73
[2020-04-10 20:00] VITALS: BP 122/75
[2020-04-11 08:30] VITALS: BP 111/63
[2020-04-11 20:45] VITALS: BP 88/53
[2020-04-12 03:42] VITALS: BP 108/61
== END 2020-04-12 16:24 | DRG 871 ==
LOC: ER 17:57 → EROBS 19:47 → 3W 19:47
PROVIDERS: Hospitalist; Nurse Practitioner Family; Student in an Organized Health Care Education/Training Program; ADMIT Internal Medicine; ATTEND Internal Medicine
PROC: 5A1D70Z Performance of Urinary Filtration, Intermittent, Less than 6 Hours Per Day (ICD-10-PCS; principal; 2020-03-29)
DX: A41.89 Other specified sepsis (principal); U07.1 COVID-19; G92 Toxic encephalopathy; N18.6 End stage renal disease; J12.89 Other viral pneumonia; J96.21 Acute and chronic respiratory failure with hypoxia; I50.33 Acute on chronic diastolic (congestive) heart failure; I13.2 Hypertensive heart and chronic kidney disease with heart failure and with stage 5 chronic kidney disease, or end stage renal disease; R65.20 Severe sepsis without septic shock; E78.5 Hyperlipidemia, unspecified; E11.22 Type 2 diabetes mellitus with diabetic chronic kidney disease; D63.1 Anemia in chronic kidney disease; K74.60 Unspecified cirrhosis of liver; Z99.2 Dependence on renal dialysis; Z79.82 Long term (current) use of aspirin; Z79.899 Other long term (current) drug therapy
CPT/HCPCS: 10080; 10879; 32100

== ENCOUNTER 2020-04-26 17:57 | Emergency (ER) | payer OTHER ==
[~2020-04-26] VITALS: Ht 170.2 cm; Wt 81.2 kg
[~2020-04-26 17:57] MED LIST changes: +EPIPEN0.3 MG/0.1 IM; +NITROSTAT0.4 M1 PO; +ROSUVASTATIN CA20 MG PO
[2020-04-26 20:42] VITALS: BP 151/86
== END 2020-04-26 23:32 | disposition home or self-care (01) ==
LOC: ER 17:57
DX: R41.82 Altered mental status, unspecified (principal); Z53.21 Procedure and treatment not carried out due to patient leaving prior to being seen by health care provider

== ENCOUNTER 2020-07-10 14:19 | Inpatient (IN) | payer OTHER ==
[~2020-07-10] VITALS: Ht 177.8 cm; Wt 73.7 kg
[2020-07-10 14:20] VITALS: BP 112/64
[2020-07-10 14:54] LABS: HEMATOCRIT 40.2 % (42.0-52.0); HEMOGLOBIN 12.7 gm/dL (14.0-18.0); MCH 27.1 pg (26.0-34.0); MCHC 31.6 g/dL (28.0-37.0); MCV 85.8 fL (80.0-100.0); PLATELET COUNT 123 thou/uL (150-400); RBC 4.68 mil/uL (4.50-6.00); RDW 16.7 % (10.5-14.5)
[2020-07-10 15:11] LABS: CALCIUM 8.4 mg/dL (8.5-10.1); CREATININE 8.1 mg/dL (0.7-1.3); POTASSIUM 3.9 mmol/L (3.5-5.1)
[2020-07-10 15:21] LABS: MAGNESIUM 2.3 mg/dL (1.8-2.4)
[2020-07-10 15:22] LABS: TROPONIN-I 5.36 ng/mL (<0.06)
[2020-07-10 15:37] LABS: ABSOLUTE NEUTROPHILS 3.6 thou/uL (1.4-8.2); ANISOCYTOSIS 1+
[2020-07-10 15:39] LABS: MACROCYTES FEW; POLYCHROMASIA OCCASIONAL
--- NOTE | 2020-07-10 15:54 | EKG ---
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 : 1945 Requested By: Derrick Zapata Order Number: [id number] MD: Alcides Guerrier Measurements Intervals [place] Rate: 82 P: 65 [place]: 172 QRS: 52 QRSD: 93 T: 7 QT: 411 QTc: 480 Interpretive Statements Sinus rhythm Low voltage, extremity leads Minimal ST depression, lateral leads Borderline prolonged QT interval Compared to ECG 03/28/2020 19:16:45 Low QRS voltage now present ST (T wave) deviation still present Electronically Signed On 07-10-2020 15:54:25 CDT by Alcides Guerrier [email or web address] <ELECTRONICALLY SIGNED> By: Alcides Guerrier MD, FACC 07/10/20 1554 [id number] [id number] Alcides Guerrier MD, [facility] /EPI
[2020-07-10 18:03] LABS: URINE BILIRUBIN NEGATIVE (Negative); URINE BLOOD TRACE (Negative); URINE CLARITY CLEAR; URINE COLOR YELLOW; URINE GLUCOSE-RANDOM* NEGATIVE (Negative); URINE KETONES NEGATIVE (Negative); URINE LEUKOCYTES-REFLEX NEGATIVE (Negative); URINE NITRITE-REFLEX NEGATIVE (Negative); URINE PROTEIN (DIPSTICK) 2+ (Negative); URINE UROBILINOGEN 0.2 E.U./dl (0.2-1.0)
[2020-07-10 18:11] LABS: HYALINE CASTS 0-3 Few /LPF (None Seen)
[2020-07-10 18:12] LABS: MUCUS 0-3 Light strn/LPF (None Seen)
[2020-07-10 18:13] LABS: SQUAMOUS 0-3 Few /LPF (0-3); URINE WBC-REFLEX 0-5 Rare /HPF (0-5)
[2020-07-10 18:14] LABS: BACTERIA-REFLEX 1-9 Few /HPF (None Seen); CRYSTALS None Seen /LPF (None Seen); URINE RBC 0-2 Rare /HPF (0-2)
[2020-07-11 03:15] VITALS: BP 97/58
[2020-07-11 03:30] VITALS: BP 111/71
[2020-07-11] MEDS ORDERED: ZINC SULFATE220 MG PO (04:24)
[2020-07-11] MEDS ORDERED: VITAMIN C500 M2 PO (04:24)
--- NOTE | 2020-07-11 04:50 | NUR ---
ASSUMED CARE OF PT FROM ED AT 0315HRS. PT IS ALERT BUT ONLY ORIENTED TO SELF AND PLACE. FALL PRECAUTION IN PLACE. PT WAS ORINTED O THE UNIT AND HIS ROOM. PT DENIES PAIN, NAUSEA OR SOA. PT RUNNING NSR ON TELE. PT HAS A DAILYSIS FISTULA ON HIS LEFT ARM AND FOLLOWS A M/W/F SCHEDULE. PT IS FOM LCCG AND INITIAL COVID COMPLETED IN ER AND IS NEGATIVE. PT WAS ABLE TO GET COMFORTABLE AND SLEEP PART OF THE SHIFT. VSS AND NO S/S OF ACUTE DISTRESS. WILL CONTINUE TO MONITOR.
[2020-07-11 06:15] LABS: HEMATOCRIT 39.8 % (42.0-52.0); HEMOGLOBIN 12.5 gm/dL (14.0-18.0); MCHC 31.4 g/dL (28.0-37.0); RBC 4.63 mil/uL (4.50-6.00); RDW 16.4 % (10.5-14.5); WBC 4.3 thou/uL (4.0-11.0)
[2020-07-11 06:49] LABS: CALCIUM 8.8 mg/dL (8.5-10.1); CREATININE 10.9 mg/dL (0.7-1.3); MAGNESIUM 2.5 mg/dL (1.8-2.4)
[2020-07-11 06:51] LABS: TROPONIN-I 5.78 ng/mL (<0.06)
--- NOTE | 2020-07-11 07:35 | EKG ---
[facility] [place] [address] ELECTROCARDIOGRAM REPORT Name: VIKI SCHULTZ Room #: 353-P ADM IN M.R.#: [id number] Admission: 07/10/20 Attend Phys: Constantino Nazario MD Discharge: Date of : 47 Report #: [id number] THIS REPORT FOR: cc: India Barth,India Salcedo,Alcides VIDAL [facility] ~ THIS REPORT FOR: //name// 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 : 1945 Requested By: Constantino Nazario Order Number: [id number] MD: Alcides Guerrier Measurements Intervals [place] Rate: 77 P: 42 MN: 178 QRS: 40 QRSD: 96 T: 35 QT: 413 QTc: 468 Interpretive Statements Sinus rhythm Atrial premature complex Borderline low voltage, extremity leads Minimal ST depression, lateral leads Compared to ECG 07/10/2020 15:08:59 Atrial premature complex(es) now present ST (T wave) deviation still present Electronically Signed On 07-11-2020 7:35:21 CDT by Alcides Guerrier [email or web address] <ELECTRONICALLY SIGNED> By: Alcides Guerrier MD, FACC 07/11/20 0735 43 43 Alcides Guerrier MD, FACC /EPI
[2020-07-11 13:09] LABS: CHOLESTEROL 134 mg/dL (<200); HDL CHOLESTEROL 20 mg/dL (>40); LDL CHOLESTEROL 74 mg/dL (<100); TC:HDL 6.7 Ratio (Not establshd); TRIGLYCERIDE 203 mg/dL (<150); VLDL 41 mg/dL (<40)
--- NOTE | 2020-07-11 15:51 | NUR ---
INITIAL ASSESSMENT: BONNIE reviewed chart and spoke with nursing and attending physician. Pt was admitted from [facility] due to elevated troponin/weakness. Pt placed in Enhanced Isolation due to COVID-19. Pt is afebrile and not requiring O2. Pt's first test was negative. Repeat COVID test ordered due to hx of COVID-19. Cardiology consulted. Pt is afebrile and not requiring O2. Pt goes to dialysis at [facility]. BONNIE placed call to pt's room. Line is busy. BONNIE left voice message for pt's brother, Constantino. service planner to fax updates to [facility] for review. [facility] Kathe. BONNIE spoke with staff at [facility], who states pt's normal dialysis schedule is second shift. Will need discharge order/summary faxed to the [facility] clinic when pt is discharged. BONNIE is following to assist as needed with discharge planning.
--- NOTE | 2020-07-11 17:44 | NUR ---
PATIENT KEEP INSISTING HE HAS TO GO BACK TO [facility] TODAY. HE IS ALERT ORIENTED X3. STATES HE DOES NOT WANT TO STAY IN THE HOSPITAL TONIGHT. RESPIRATIONS ARE EVEN UNLABORED.DIFFICULT TO REDIRECT PATIENT HE IS BENT ON GOING HOME TODAY. WILL CONT TO REDIRECT.
[2020-07-11 19:32] VITALS: BP 108/66
--- NOTE | 2020-07-12 05:01 | NUR ---
SLEPT MOST OF SHIFT. TURNS SELF IN BED WITHOUT ASSIST. WORKING ON GOALS AND PLAN OF CARE FOR NOC. DENIES COMPLAINTS OF PAIN OR SHORTNESS OF AIR. SECOND COVID NEGATIVE. PROGRESSING TOWARDS GOALS FOR DISCHARGE BACK TO [facility]. CONTINUE TO ASSES CLOSELY.
[2020-07-12 05:30] VITALS: BP 107/67
[2020-07-12 07:40] VITALS: BP 132/74
[2020-07-12 11:18] VITALS: BP 101/62
--- NOTE | 2020-07-12 12:40 | 2DMMODE ---
[facility] [place] [address] 2 D/M-MODE ECHOCARDIOGRAM Name: VIKI SCHULTZ Room #: 353-P ADM IN M.R.#: [id number] Admission: 07/10/20 Attend Phys: Constantino Nazario MD Discharge: Date of : 47 Report #: [id number] THIS REPORT FOR: cc: India Barth,Alcides Galindo MD [facility] ~ APPROVED REPORT Study performed: 07/12/2020 11:52:16 EXAM: Comprehensive 2D, Doppler, and color-flow Echocardiogram Patient Location: Bedside Room #: 353 Status: routine BSA: 1.91 HR: 74 bpm BP: 111/71 mmHg Rhythm: NSR Other Information Study Quality: Good/exam done with patient in recliner. Indications Elevated troponin. Hx: COVID-19 (March), ESRD, DM, HTN, HLP. 2D Dimensions RVDd: 36.24 mm IVSd: 12.00 (7-11mm) LVOT Diam: 21.11 (18-24mm) LVDd: 47.26 mm PWd: 11.43 (7-11mm) Ascending Ao: 34.52 (22-36mm) LVDs: 35.49 (25-40mm) Aortic Root: 36.17 mm Volumes Left Atrial Volume (Systole) Single Plane 4CH: 38.38 mL Single Plane 2CH: 61.38 mL LA ESV Index: 28.00 mL/m2 Aortic Valve AoV Peak Prashant.: 1.86 m/s AO Peak Gr.: 13.80 mmHg LVOT Max P.03 mmHg AO Mean Gr.: 7.86 mmHg [facility] [address] [place] [address] 2 D/M-MODE ECHOCARDIOGRAM Name: VIKI SCHULTZ Room #: 353-P ADM IN .R.#: [id number] Admission: 07/10/20 Attend Phys: Constantino Nazario MD Discharge: Date of : 47 Report #: [id number] AO V2 Mean: 1.35 m/s LVOT Max V: 1.23 m/s AO V2 VTI: 34.14 cm EVAN Vmax: 2.31 cm2 AI Vmax: 3.67 m/s AI Mitchell: 2.23 m/s2 AI PHT: 478.18 ms Mitral Valve E/A Ratio: 0.7 MV Decel. Time: 259.83 ms MV E Max Prashant.: 0.61 m/s MV A Prashant.: 0.91 m/s MV PHT: 75.35 ms IVRT: 79.58 ms Pulmonary Valve PV Peak Prashant.: 0.84 m/s PV Peak Gr.: 2.79 mmHg Pulmonary Vein P Vein S: 0.42 m/s P Vein D: 0.32 m/s P Vein S/D Ratio: 1.31 Tricuspid Valve TR Peak Prashant.: 2.15 m/s RAP Estimate: 5.00 mmHg TR Peak Gr.: 18.43 mmHg PA Pressure: 23.00 mmHg Left Ventricle The left ventricle is normal size. Possible gegional wall motion abnormalities are noted. Mild basal septal hypertrophy is present. Left ventricular systolic function is low normal. LVEF is 50%. Mild diastolic dysfunction is present (impaired relaxation pattern). Right Ventricle The right ventricle is normal size. The right ventricular systolic function is normal. Atria The left atrium size is normal. The right atrium size is normal. Aortic Valve Aortic valve is calcified. Mild aortic regurgitation. There is no aortic valvular stenosis. [facility] [address] [place] [address] 2 D/M-MODE ECHOCARDIOGRAM Name: VIKI SCHULTZ Room #: 353-P ADM IN M.R.#: [id number] Admission: 07/10/20 Attend Phys: Constantino Nazario MD Discharge: Date of : 47 Report #: [id number] Mitral Valve The mitral valve is normal in structure. Mild mitral regurgitation. Tricuspid Valve The tricuspid valve is normal in structure. Trace tricuspid regurgitation. Estimated PAP is 20-25mmHg. Pulmonic Valve The pulmonary valve is normal in structure. Trace pulmonic regurgitation. Great Vessels The aortic root is normal in size. The ascending aorta is normal in size. IVC is normal in size and collapses >50% with inspiration. Pericardium There is no pericardial effusion. <Conclusion> Normal left ventricle size, mild septal hypertrophy Preserved ejection fraction of 50%, no obvious segmental wall motion normality Mild mitral as well as aortic valve insufficiency Trace of tricuspid valve insufficiency, PA pressure systolic estimated at 25 mmHg No pericardial effusion <ELECTRONICALLY SIGNED> By: Alcides Guerrier MD, FACC 07/12/20 1240 Alcides Guerrier MD, FACC /INF
--- NOTE | 2020-07-12 15:07 | NUR ---
SW reviewed chart and spoke with nursing and attending physician. Pt's repeat COVID test was negative. Pt is afebrile and not requiring O2. Pt had echo earlier today. Plan is for pt to discharge back to [facility] tomorrow. SW provided update to Kathe in admissions. Pt will return to [facility] when medically stable. BONNIE is following to assist as needed with discharge planning.
[2020-07-12 15:14] VITALS: BP 107/64
--- NOTE | 2020-07-12 16:59 | NUR ---
RN ASSUMED PT'S CARE AT 0700AM , PT IS A&OX2 ( PERSON AND PLACE ), PT IS CONFUSED AT TIME, PT'S COVID ISOLATION HAS DC ORDER, BECAUSE PT HAS 2 TIMES NEGATIVE COVID TEST, PT'S VS ARE STABLE, PT GETS UP TO CHAIR WITH ASSIST , PT'S PLAN IS DC TO SNF TOMORROW AFTER DIALYSIS.
[2020-07-12 19:20] VITALS: BP 105/61
[2020-07-13 04:25] VITALS: BP 122/74
--- NOTE | 2020-07-13 04:37 | NUR ---
ASSUMED CARE OF PT AT 1900HRS. PT IS AOX1-2 AND NEEDS MUST BE ANTICIPATED. FALL RPECAUTION IN PLACE. PT RUNNING NSR ON TELE. ASSESSMENT CHARTED. PT DENIED PAIN, NAUSEA OR SOA. PT WAS ABLE TO GET COMFORTABLE AND SLEEP PART OF THE SHIFT. VSS AND NO S/S OF ACUTE DISTRESS. WILL CONTINUE TO MONITOR.
[2020-07-13 06:50] LABS: ALBUMIN 2.9 g/dL (3.4-5.0); CALCIUM 8.4 mg/dL (8.5-10.1); CREATININE 10.2 mg/dL (0.7-1.3); PHOSPHORUS 4.8 mg/dL (2.5-4.9); POTASSIUM 3.9 mmol/L (3.5-5.1)
--- NOTE | 2020-07-13 11:42 | NUR ---
BONNIE reviewed chart and spoke with nursing and attending physician. Pt has had two negative COVID tests. Enhanced Isolation precautions have been discontinued. Pt to have dialysis today and discharge back to [facility] [address] [facility]. BONNIE faxed clinical updates/COVID test results to [facility] for [place]. Awaiting finalized discharge orders/summary. BONNIE spoke with Dunia at [facility] where pt goes to dialysis. Pt to resume regular outpatient dialysis on Thursday. SW to fax discharge ppwk to the dialysis clinic. Pt to transport via w/c van. Chart copy ordered. BONNIE is following to assist as needed with discharge planning.
[2020-07-13 12:10] VITALS: BP 118/68
--- NOTE | 2020-07-13 13:47 | NUR ---
RN HAS ASSUMED PT'S CARE AT 0700AM, PT IS A&OX2 ( PERSON AND PLACE ), PT CAN FOLLOW COMMANDS, BUT PT IS CONFUSED AT TIME, PT FINISHED HIS DIALYSIS ABOUT 1110AM, PT IS TOLERATED , REMOVAL 1500ML FLIUD , PT'S VS ARE VSTABLE, PT DENIES PAIN AND SOB, PT'S PLAN IS DC TO SNF TODAY.
[2020-07-13] MEDS ORDERED: CARVEDILOL3.125 MG PO (14:11)
[2020-07-13 15:10] VITALS: BP 133/82
--- NOTE | 2020-07-13 17:07 | NUR ---
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
== END 2020-07-13 17:10 | DRG 280 ==
LOC: ER 14:19 → 3W 16:00 → EROBS 16:00 → 3W 07-11 03:20
PROVIDERS: Emergency Medicine; Internal Medicine Nephrology; Nurse Practitioner Adult Health; ADMIT Internal Medicine; ATTEND Internal Medicine
PROC: 5A1D70Z Performance of Urinary Filtration, Intermittent, Less than 6 Hours Per Day (ICD-10-PCS; principal; 2020-07-11)
PROC: 5A1D70Z Performance of Urinary Filtration, Intermittent, Less than 6 Hours Per Day (ICD-10-PCS; 2020-07-13)
DX: I21.4 Non-ST elevation (NSTEMI) myocardial infarction (principal); N18.6 End stage renal disease; I12.0 Hypertensive chronic kidney disease with stage 5 chronic kidney disease or end stage renal disease; F03.90 Unspecified dementia, unspecified severity, without behavioral disturbance, psychotic disturbance, mood disturbance, and anxiety; Z20.828 Contact with and (suspected) exposure to other viral communicable diseases; E78.5 Hyperlipidemia, unspecified; K74.60 Unspecified cirrhosis of liver; E78.00 Pure hypercholesterolemia, unspecified; E11.22 Type 2 diabetes mellitus with diabetic chronic kidney disease; Z99.2 Dependence on renal dialysis
CPT/HCPCS: 10879; 32100